=== PATIENT | female | born 1970 ===

== ENCOUNTER 2017-04-17 18:32 | Emergency (ER) | payer OTHER ==
[2017-04-17 18:32] VITALS: BMI 39.6
--- NOTE | 2017-04-17 19:02 | ED PDOC ---
Arrival/HPI <Alex Núñez - Last Filed: 04/17/17 19:38> - General Historian: Patient - History of Present Illness Time/Duration: Other (1 da) Quality: Aching Context: Home <Jackeline Cui - Last Filed: 04/17/17 20:28> - General Chief Complaint: Upper Extremity Problem/Injury Time Seen by Provider: 04/17/17 18:59 - History of Present Illness Narrative History of Present Illness (Text): 04/17/17 19:01 This 46 yo female presents to this ED c/o right elbow/forearm pain and swelling x 1 day. Patient stated her mother has a pmh DVT, and she is concern. Denies trauma, weakness, paresthesias, skin rash, swelling, recent travel, or sick contact. (Jackeline Cui) Past Medical History - Provider Review Nursing Documentation Reviewed: Yes - Cardiac Hx Hypertension: Yes - Pulmonary Hx Asthma: Yes - Neurological Hx Neurological Disorder: No - HEENT Hx HEENT Disorder: No - Endocrine/Metabolic Other/Comment: sarcoidosis - Hematological/Oncological Hx Blood Disorders: No - Integumentary Hx Dermatological Disorder: No - Musculoskeletal/Rheumatological Hx Musculoskeletal Disorders: No - Gastrointestinal Hx Gastrointestinal Disorders: No - Genitourinary/Gynecological Hx Genitourinary Disorders: No - Psychiatric Hx Depression: No Hx Emotional Abuse: No Hx Physical Abuse: No Hx Substance Use: No - Anesthesia Hx Anesthesia: No - Suicidal Assessment Feels Threatened In Home Enviroment: No <Jackeline Cui - Last Filed: 04/17/17 20:28> Family/Social History - Physician Review Nursing Documentation Reviewed: Yes Family/Social History: No Known Family HX Smoking Status: Never Smoked Hx Alcohol Use: No Hx Substance Use: No Hx Substance Use Treatment: No <Jackeline Cui - Last Filed: 04/17/17 20:28> Allergies/Home Meds <Alex Núñez - Last Filed: 04/17/17 19:38> <Jackeline Cui - Last Filed: 04/17/17 20:28> Allergies/Adverse Reactions: Allergies No Known Allergies Allergy (Verified 05/12/12 15:41) Home Medications: Home Meds Medication Instructions Recorded Confirmed Albuterol Sulfate [Albuterol 0.09 mg IH DAILY 05/12/12 04/17/17 Sulfate Hfa] Review of Systems - Review of Systems Constitutional: Normal. absent: Fatigue, Weight Change, Fevers Eyes: Normal ENT: Normal Respiratory: Normal Cardiovascular: Normal Gastrointestinal: Normal Genitourinary Female: Normal Musculoskeletal: Other (see hpi) Skin: Normal Neurological: Normal Endocrine: Normal Hemo/Lymphatic: Normal Psychiatric: Normal <Jackeline Cui - Last Filed: 04/17/17 20:28> Physical Exam Temperature: Afebrile Blood Pressure: Normal Pulse: Regular Respiratory Rate: Normal Appearance: Positive for: Well-Appearing, Non-Toxic, Comfortable Pain Distress: None Mental Status: Positive for: Alert and Oriented X 3 - Systems Exam Head: Present: Atraumatic, Normocephalic Pupils: Present: PERRL Extroacular Muscles: Present: EOMI Conjunctiva: Present: Normal Mouth: Present: Moist Mucous Membranes Neck: Present: Normal Range of Motion Respiratory/Chest: Present: Clear to Auscultation, Good Air Exchange. No: Respiratory Distress, Accessory Muscle Use Cardiovascular: Present: Regular Rate and Rhythm, Normal S1, S2. No: Murmurs Abdomen: Present: Normal Bowel Sounds. No: Tenderness, Distention, Peritoneal Signs Back: Present: Normal Inspection Upper Extremity: Present: Normal Inspection, NORMAL PULSES, Tenderness, Neurovascularly Intact, Capillary Refill < 2s. No: Cyanosis, Edema, Swelling, Erythema, Temperature Abnormalties Lower Extremity: Present: Normal Inspection, NORMAL PULSES, Neurovascularly Intact, Capillary Refill < 2 s. No: Edema Neurological: Present: GCS=15, CN II-XII Intact, Speech Normal Skin: Present: Warm, Dry, Normal Color. No: Rashes Psychiatric: Present: Alert, Oriented x 3, Normal Insight, Normal Concentration <SeeaKndykat P - Last Filed: 04/17/17 20:28> Vital Signs Temp Pulse Resp BP Pulse Ox 04/17/17 18:48 98.3 F 73 16 149/91 H 98 Medical Decision Making <Alex Núñez - Last Filed: 04/17/17 19:38> Re-evaluation Time: 20:05 Reassessment Condition: Re-examined, Improved <Jackeline Cui - Last Filed: 04/17/17 20:28> ED Course and Treatment: 04/17/17 20:04 This (CuiKandy caraballokat Alba) - RAD Interpretation Narrative RAD Interpretations (Text): 04/17/17 20:05 Venous Upper Extremity Doppler: No DVT Forearm x-rays: No Fx or disloca. (+) distal ulnar bone cyst (Jackeline Cui P) Radiology Orders: 04/17/17 18:59 DUPLEX UPPER EXTRM VEIN RIGHT [US] Stat 04/17/17 19:00 ELBOW RIGHT 3 VIEWS ROUTINE [RAD] Stat FOREARM RIGHT [RAD] Stat - Medication Orders Current Medication Orders: Discontinued Medications Ketorolac Tromethamine (Toradol) 30 mg IM STAT STA Stop: 04/17/17 19:03 Last Admin: 04/17/17 19:27 Dose: 30 mg - PA / [employer] ME[employer]IC / Resident Statement DORA has reviewed & agrees with the documentation as recorded. DORA has examined the patient and agrees with the treatment plan. <Alex Núñez - Last Filed: 04/17/17 19:38> Disposition/Present on Arrival <Alex Núñez - Last Filed: 04/17/17 19:38> - Present on Arrival Any Indicators Present on Arrival: No History of DVT/PE: No History of Uncontrolled Diabetes: No Urinary Catheter: No History of Decub. Ulcer: No History Surgical Site Infection Following: None - Disposition Have Diagnosis and Disposition been Completed?: Yes Disposition Time: 20:20 Patient Plan: Discharge <Jackeline Cui Parth - Last Filed: 04/17/17 20:28> - Disposition Diagnosis: Lateral epicondylitis (tennis elbow) Disposition: HOME/ ROUTINE Condition: GOOD Discharge Instructions (ExitCare): Tennis Elbow (ED) Additional Instructions: Call private doctor for follow up visit in 1-2 days. Call orthopedist for revaluation ion 5 days. Avoid excessive use the affected arm for 5 days. Return to emergency if symptoms worsen. Prescriptions: Famotidine [Pepcid] 40 mg PO DAILY #10 tablet Naproxen 500 mg PO BID #14 tab oxyCODONE/Acetaminophen [Percocet 5/325 mg Tab] 1 ea PO BID PRN #5 tab PRN Reason: Pain, Severe (8-10) Referrals: Henri Doyle MD [Primary Care Provider] - Follow up with primary Aleks Cavazos DO [Staff Provider] - Follow up with primary Forms: WORK NOTE
[2017-04-17 19:04] VITALS: RESP 16; TEMP 98.3
[2017-04-17 20:46] VITALS: BP 140/87; PULSE 78; O2SAT 97
--- NOTE | 2017-04-18 07:57 | RAD ---
PROCEDURE: Radiographs of the right elbow. HISTORY: pain COMPARISON: No prior. FINDINGS: BONES: Nascimento a distal ulnar partially visualized cystic lesion measuring at least 2.1 cm on the lateral view suggested. No more proximal fracture at the elbow joint suggested. No elbow joint dislocation. Posterior distal humeral spurring suggested JOINTS: Minimal osteoarthritis. SOFT TISSUES: Normal. JOINT EFFUSION: None. OTHER FINDINGS: None. IMPRESSION: Distal ulnar cystic lesion incompletely visualized/assessed. Please note subsequent left forearm study including this area Animal elbow joint arthrosis. No proximal forearm or elbow level fracture or dislocation suggested
--- NOTE | 2017-04-18 08:01 | RAD ---
PROCEDURE: Radiographs of the Right Forearm HISTORY: pain COMPARISON: None available. TECHNIQUE: Frontal and lateral views obtained. FINDINGS: BONES: A 2.3 x 9.6 cm distal ulnar geographic cystic lesion with mild expansion thinning of the distal cortex. No pathological fracture now noted. However the potential for this is worth noting. JOINT SPACES: Unremarkable. OTHER FINDINGS: None. 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 However the potential for this is worth noting. Both benign and malignant etiologies are considerations Orthopedic consultation for follow-up recommended
--- NOTE | 2017-04-18 10:33 | US ---
PROCEDURE: Right upper extremity venous US CLINICAL HISTORY: Arm pain and swelling Evaluate for deep venous thrombosis. PHYSICIAN(S): Ko Shea M.D FINDINGS: The visualized rightinternal jugular vein is sonographically normal and compressible. No evidence of obstruction or thrombus is seen. The visualized segments of the right subclavian vein are patent with normal waveforms. No sonographic evidence of obstruction or thrombosis is seen. The visualized deep venous system of the proximal right upper extremity is sonographically normal and compressible. IMPRESSION: 1. No sonographic evidence for deep venous thrombosis in the visualized segments of the right upper extremity.
== END 2017-04-17 20:32 | disposition home or self-care (01) ==
LOC: ED 18:32
DX: M77.11 Lateral epicondylitis, right elbow (principal)
CPT/HCPCS: 73080; 73090; 93971; 96372; 99284; J1885